=== PATIENT | female | born 1995 | race Caucasian/White ===

== ENCOUNTER 2017-05-28 17:55 | Emergency (ER) | payer OTHER ==
[2017-05-28 18:07] VITALS: BP 132/64
--- NOTE | 2017-05-28 18:39 | UC ---
Complaint Female HPI - HPI Summary HPI Summary: 22 YEAR OLD FEMALE PRESENTS WITH COMPLAINS OF FOUL SMELLING VAGINAL DISCHARGE. - History Of Current Complaint Chief Complaint: UCGU Stated Complaint: burning urination Time Seen by Provider: 05/28/17 18:36 Hx Obtained From: Patient Hx Last Menstrual Period: IUD Onset/Duration: Sudden Onset Timing: Constant Severity Initially: Moderate Severity Currently: Moderate - Allergies/Home Medications Allergies/Adverse Reactions: Allergies Allergy/AdvReac Type Severity Reaction Status Date / Time No Known Allergies Allergy Verified 05/28/17 18:07 Home Medications: Home Medications Amphetamine-Dextroamphetamine [Adderall 15 mg] 1 tab PO BID 05/28/17 [History Confirmed 05/28/17] Minoxidil (Topical) [Rogaine Mens Extra Streng] 1 puff TOPICAL DAILY 05/28/17 [ History Confirmed 05/28/17] PMH/Surg Hx/FS Hx/Imm Hx Previously Healthy: Yes - Surgical History Surgical History: None - Social History Alcohol Use: Occasionally Substance Use Type: None Substance Use Comment - Amount & Last Used: occasional marijuana, today synthetic marijuana Smoking Status (MU): Current Some Day Smoker Type: eCigarettes Review of Systems Constitutional: Negative Skin: Negative Eyes: Negative ENT: Negative Respiratory: Negative Cardiovascular: Negative Gastrointestinal: Negative Genitourinary: Vaginal/Penile Burning, Vaginal/Penile Itching, Vaginal/Penile Discharge Motor: Negative Neurovascular: Negative Musculoskeletal: Negative Neurological: Negative Psychological: Negative All Other Systems Reviewed And Are Negative: Yes Physical Exam Triage Information Reviewed: Yes Appearance: Well-Appearing Vital Signs: Initial Vital Signs Temp 36.3 C 05/28/17 18:03 Pulse 78 05/28/17 18:03 Resp 12 05/28/17 18:03 BP 132/64 05/28/17 18:03 Pulse Ox 100 05/28/17 18:03 Vital Signs Reviewed: Yes Eye Exam: Normal ENT Exam: Normal Dental Exam: Normal Neck exam: Normal Neck: Positive: 1 Respiratory Exam: Normal Cardiovascular Exam: Normal Abdomen Description: Positive: Other: - SPECULUM EXAM - FROTHY WHILE FOUL SMELLING DISCHARGE Musculoskeletal Exam: Normal Neurological Exam: Normal Psychological Exam: Normal Skin Exam: Normal Complaint Female Dx - Differential Dx/Diagnosis Provider Diagnoses: VAGINAL DISCHARGE Discharge - Discharge Plan Condition: Stable Disposition: HOME Prescriptions: Fluconazole [Diflucan 150 MG (NF)] 150 mg PO ONCE #1 tab Metronidazole [Flagyl 500 MG TAB] 500 mg PO BID #14 tab Sulfamethox/Trimethoprim DS* [Bactrim DS 800/160 TAB*] 1 tab PO BID #6 tab Patient Education Materials: Vaginal Discharge (ED)
--- NOTE | 2017-05-31 19:02 | UC ---
Progress - Progress Note Progress Note: 05/31/17 call patient g/c negative. ucx (-).
== END 2017-05-28 19:07 | disposition home or self-care (01) ==
LOC: UCEAST 17:55
DX: N89.8 Other specified noninflammatory disorders of vagina (principal); R30.0 Dysuria; Z32.02 Encounter for pregnancy test, result negative; F12.90 Cannabis use, unspecified, uncomplicated; Z72.0 Tobacco use
CPT/HCPCS: 81003; 84702; 87086; 87480; 87491; 87510; 87591; 87660; 99212; G0463

== ENCOUNTER 2018-05-15 07:03 | Emergency (ER) | payer OTHER ==
[2018-05-15 07:18] VITALS: BP 126/89
--- NOTE | 2018-05-15 07:28 | ED ---
Throat Pain/Nasal Congestion - HPI Summary HPI Summary: sore throat for the last several days. BF diagnosed with strep. now with some symptoms of pressure in her ears, mild cough - History of Current Complaint Chief Complaint: UCGeneralIllness Time Seen by Provider: 05/15/18 07:21 Hx Obtained From: Patient Onset/Duration: Gradual Onset, Lasting Days Severity: Mild Associated Signs And Symptoms: Positive: Negative Cough: Nonproductive - Epiglottits Risk Factors Epiglottis Risk Factors: Negative - Allergies/Home Medications Allergies/Adverse Reactions: Allergies Allergy/AdvReac Type Severity Reaction Status Date / Time No Known Allergies Allergy Verified 05/15/18 07:18 Home Medications: Home Medications Levonorgestrel (Iud) [Mirena IUD] 20 mcg IU ONCE 05/15/18 [History Confirmed 05/23] PMH/Surg Hx/FS Hx/Imm Hx Previously Healthy: Yes Endocrine/Hematology History: Denies: Hx Diabetes, Hx Thyroid Disease Cardiovascular History: Denies: Hx Hypertension Respiratory History: Denies: Hx Asthma, Hx Chronic Obstructive Pulmonary Disease (COPD) GI History: Denies: Hx Ulcer Infectious Disease History: No Infectious Disease History: Denies: Hx Hepatitis, Hx Human Immunodeficiency Virus (HIV), Traveled Outside the [place] in Last 30 Days - Social History Alcohol Use: Weekly Substance Use Type: Reports: None Substance Use Comment - Amount & Last Used: occasional marijuana, today synthetic marijuana Smoking Status (MU): Current Some Day Smoker Type: eCigarettes Review of Systems Constitutional: Negative Eyes: Negative ENT: Negative Cardiovascular: Negative Respiratory: Negative Gastrointestinal: Negative Genitourinary: Negative Musculoskeletal: Negative Skin: Negative Neurological: Negative All Other Systems Reviewed And Are Negative: Yes Physical Exam Triage Information Reviewed: Yes Vital Signs On Initial Exam: Initial Vitals Temp Pulse Resp BP Pulse Ox 36.8 C 87 18 126/89 98 05/15/18 07:12 05/15/18 07:12 05/15/18 07:12 05/15/18 07:12 05/15/18 07:12 Vital Signs Reviewed: Yes Appearance: Positive: Well-Appearing Skin: Positive: Warm Head/Face: Positive: Normal Head/Face Inspection Eyes: Positive: Normal ENT: Positive: Normal ENT inspection Neck: Positive: Supple Respiratory/Lung Sounds: Positive: Clear to Auscultation Cardiovascular: Positive: Normal Abdomen Description: Positive: Nontender Musculoskeletal: Positive: Normal Diagnostics - Vital Signs Vital Signs Temp Pulse Resp BP Pulse Ox 05/15/18 07:12 36.8 C 87 18 126/89 98 - Laboratory Lab Statement: Any lab studies that have been ordered have been reviewed, and results considered in the medical decision making process. EENT Course/Dx - Diagnoses Provider Diagnoses: Pharyngitis Discharge - Sign-Out/Discharge Documenting (check all that apply): Patient Departure All imaging exams completed and their final reports reviewed: Yes - Discharge Plan Condition: Good Disposition: HOME Patient Education Materials: Pharyngitis (ED) Referrals: No Primary Care Phys,NOPCP [Primary Care Provider] - - Billing Disposition and Condition Condition: GOOD Disposition: Home
== END 2018-05-15 07:36 | disposition home or self-care (01) ==
LOC: UCEAST 07:03
DX: J02.9 Acute pharyngitis, unspecified (principal); Z72.0 Tobacco use
CPT/HCPCS: 87651; 99211; G0463

== ENCOUNTER 2018-07-08 16:05 | Emergency (ER) | payer OTHER ==
[2018-07-08 16:15] VITALS: BP 125/88
--- NOTE | 2018-07-08 16:27 | ED ---
Throat Pain/Nasal Congestion - HPI Summary HPI Summary: 23-year-old female presents with sore throat for the past 2 days. She states she's been having fevers. She denies any cough. She admits to sinus condition. No ear pain or headache. She denies any history of strep. No one else is sick. She has been taking Tylenol and ibuprofen for her symptoms. - History of Current Complaint Chief Complaint: UCGeneralIllness Time Seen by Provider: 07/08/18 16:18 - Allergies/Home Medications Allergies/Adverse Reactions: Allergies Allergy/AdvReac Type Severity Reaction Status Date / Time No Known Allergies Allergy Verified 07/08/18 16:16 PMH/Surg Hx/FS Hx/Imm Hx Endocrine/Hematology History: Denies: Hx Diabetes, Hx Thyroid Disease Cardiovascular History: Denies: Hx Hypertension Respiratory History: Denies: Hx Asthma, Hx Chronic Obstructive Pulmonary Disease (COPD) GI History: Denies: Hx Ulcer Infectious Disease History: No Infectious Disease History: Denies: Hx Hepatitis, Hx Human Immunodeficiency Virus (HIV), Traveled Outside the in Last 30 Days - Family History Known Family History: Positive: Non-Contributory - Social History Alcohol Use: Weekly Substance Use Type: Reports: Prescribed Substance Use Comment - Amount & Last Used: Xanax every couple of months Smoking Status (MU): Former Smoker Type: eCigarettes Review of Systems Positive: Fever Positive: Sore Throat Negative: Chest Pain Negative: Shortness Of Breath All Other Systems Reviewed And Are Negative: Yes Physical Exam Triage Information Reviewed: Yes Vital Signs On Initial Exam: Initial Vitals Temp Pulse Resp BP Pulse Ox 98.8 F 88 16 125/88 100 07/08/18 16:11 07/08/18 16:11 07/08/18 16:11 07/08/18 16:11 07/08/18 16:11 Vital Signs Reviewed: Yes Appearance: Positive: Well-Appearing Skin: Positive: Warm, Dry Head/Face: Positive: Normal Head/Face Inspection Eyes: Positive: Normal, Conjunctiva Clear ENT: Positive: Pharyngeal erythema, TMs normal, Uvula midline, Other - soft palate symmetric. Negative: Tonsillar swelling, Tonsillar exudate, Trismus, Muffled voice Neck: Positive: Supple, Nontender, No Lymphadenopathy Respiratory/Lung Sounds: Positive: Clear to Auscultation, Breath Sounds Present Cardiovascular: Positive: Normal, RRR Abdomen Description: Positive: Nontender, Soft Bowel Sounds: Positive: Present Musculoskeletal: Positive: Normal Neurological: Positive: Normal Psychiatric: Positive: Normal Diagnostics - Vital Signs Vital Signs Temp Pulse Resp BP Pulse Ox 07/08/18 16:11 98.8 F 88 16 125/88 100 - Laboratory Lab Statement: Any lab studies that have been ordered have been reviewed, and results considered in the medical decision making process. EENT Course/Dx - Course Course Of Treatment: 23-year-old female presents with sore throat for the past 2 days. She states she's been having fevers. She denies any cough. She admits to sinus condition. No ear pain or headache. She denies any history of strep. No one else is sick. She has been taking Tylenol and ibuprofen for her symptoms. On exam pharynx erythematous. Uvula midline. Soft palate symmetric. strept pos. will treat wtih amoxicillin. patient understand and agrees with plan. - Differential Diagnoses Differential Diagnoses: Pharyngitis, Sinusitis, URI/Bronchitis - Diagnoses Provider Diagnoses: Sore throat Discharge - Sign-Out/Discharge Documenting (check all that apply): Patient Departure All imaging exams completed and their final reports reviewed: No Studies - Discharge Plan Condition: Good Disposition: HOME Prescriptions: Amoxicillin PO (*) [Amoxicillin 500 MG CAP*] 500 mg PO Q12H #20 cap Patient Education Materials: Strep Throat (ED) Forms: *School Release Referrals: No Primary Care Phys,NOPCP [Primary Care Provider] - Additional Instructions: Take antibiotic twice a day for 10 days Take Tylenol or ibuprofen for pain/fever every 6 hours Can gargle salt water, use cough drops or products such as cloraseptic spray for pain Return to ED if develop difficulty breathing or unable to manage secretions, any new or worsening symptoms - Billing Disposition and Condition Condition: GOOD Disposition: Home
== END 2018-07-08 16:44 | disposition home or self-care (01) ==
LOC: UCEAST 16:05
DX: J02.9 Acute pharyngitis, unspecified (principal)
CPT/HCPCS: 87651; 99212; G0463

== ENCOUNTER 2018-10-22 19:16 | Emergency (ER) | payer BC ==
--- NOTE | 2018-10-22 19:28 | UC ---
Epistaxis Nasal HPI - HPI Summary HPI Summary: 23 yo female presents with nose injury. She tells me that on 10/17 she was pole dancing for exercise and fell. She hit her face on the floor. No LOC. She had a bloody nose for about 2 hours, but stopped with direct pressure. Since that time has had pain, swelling, and bruising. She is concerned she broke it and wants to make sure it is healing well if so. She does have some difficulty breathing through her nose, mostly the left nostril and finds herself breathing through her mouth more often. Has been applying ice and taking ibuprofen for discomfort with good relief. No more bloody noses since the initial injury. No headache, dizziness, vision changes. - History of Current Complaint Stated Complaint: NOSE INJURY Time Seen by Provider: 10/22/18 19:28 Hx Obtained From: Patient Hx Last Menstrual Period: IUD Onset/Duration: Sudden Onset Timing: Constant Severity Initially: Severe Severity Currently: Moderate Pain Intensity: 5 Pain Scale Used: 0-10 Numeric - Allergies/Home Medications Allergies/Adverse Reactions: Allergies Allergy/AdvReac Type Severity Reaction Status Date / Time No Known Allergies Allergy Verified 10/22/18 19:38 Home Medications: Home Medications Dextroamphetamine/Amphetamine [Adderall 10 mg-] 1 tab PO DAILY 10/22/18 [ History Confirmed 10/22/18] Melatonin/Pyridoxine HCl (B6) [Melatonin] 3 tab PO BEDTIME PRN 10/22/18 [ History Confirmed 10/22/18] Sertraline* [Zoloft*] 50 mg PO DAILY 10/22/18 [History Confirmed 10/22/18] diPHENhydraMINE PO* [Benadryl PO 50 MG CAP*] 50 mg PO BEDTIME PRN 10/22/18 [ History Confirmed 10/22/18] PMH/Surg Hx/FS Hx/Imm Hx - Additional Past Medical History Additional PMH: ADHD Psychological History: Anxiety, Depression - Surgical History Surgical History: None - Family History Known Family History: Positive: Non-Contributory - Social History Occupation: Student Lives: With Family Alcohol Use: Weekly Substance Use Type: Prescribed Substance Use Comment - Amount & Last Used: Xanax every couple of months Smoking Status (MU): Former Smoker Type: eCigarevick Review of Systems All Other Systems Reviewed And Are Negative: Yes Constitutional: Positive: Negative Skin: Positive: Negative Eyes: Positive: Negative ENT: Positive: Other - Nose pain Respiratory: Positive: Negative Cardiovascular: Positive: Negative Neurovascular: Positive: Negative Neurological: Positive: Negative Psychological: Positive: Negative Physical Exam - Summary Physical Exam Summary: GENERAL: NAD. WDWN. No pain distress. SKIN: Ecchymosis along nasal bridge. HEENT: Head: AT/NC Eyes: EOM intact and without pain Nose: Nasal mucosa pink and moist. Deviated septum to left. Purple/ yellow/green ecchymosis along the nasal bridge. Mild TTP here. Mild edema. NECK: Supple. Nontender. No lymphadenopathy. CHEST: CTAB. No r/r/w. No accessory muscle use. Breathing comfortably and in no distress. CV: RRR. Without m/r/g. Pulses intact. Cap refill <2seconds NEURO: Alert. PSYCH: Age appropriate behavior. Triage Information Reviewed: Yes Vital Signs: Vital Signs: Temp Pulse Resp BP Pulse Ox 98.9 F 105 18 139/79 98 10/22/18 19:35 10/22/18 19:35 10/22/18 19:35 10/22/18 19:35 10/22/18 19:35 Vital Signs Reviewed: Yes Epistaxis Nasal Course/Dx - Course Course Of Treatment: Nasal bone XR: No radiologist reading after 1800, therefore wet read by myself is positive for non-displaced fracture. Discussed results with pt. She is going home in a few weeks for break and wishes to f/u with an ENT doctor for possible surgery in [place]. Advised to continue to ice the area and take ibuprofen prn pain. - Differential Dx/Diagnosis Provider Diagnosis: Nasal fracture Discharge - Sign-Out/Discharge Documenting (check all that apply): Patient Departure All imaging exams completed and their final reports reviewed: No - Discharge Plan Condition: Stable Disposition: HOME Patient Education Materials: Nasal Fracture (ED) Referrals: No Primary Care Phys,NOPCP [Primary Care Provider] - Additional Instructions: If you develop a fever, shortness of breath, chest pain, new or worsening symptoms - please call your PCP or go to the ED. Please follow up with your Ear Nose and throat doctor back home in [place] - Billing Disposition and Condition Condition: STABLE Disposition: Home
[2018-10-22 19:37] VITALS: BP 139/79
== END 2018-10-22 20:05 | disposition home or self-care (01) ==
LOC: UCEAST 19:16
DX: S02.2XXA Fracture of nasal bones, initial encounter for closed fracture (principal); F90.9 Attention-deficit hyperactivity disorder, unspecified type; F41.8 Other specified anxiety disorders; Z79.899 Other long term (current) drug therapy; Z87.891 Personal history of nicotine dependence; W01.198A Fall on same level from slipping, tripping and stumbling with subsequent striking against other object, initial encounter; Y93.41 Activity, dancing; Y92.9 Unspecified place or not applicable
CPT/HCPCS: 70160; 99211; G0463